=== PATIENT | male | born 1960 | race Two or more races ===

== ENCOUNTER 2021-03-25 09:57 | Emergency (ER) | payer SELFPAY ==
[~2021-03-25] VITALS: Ht 172.7 cm; Wt 76.2 kg
[2021-03-25 10:55] VITALS: BP 155/99
[2021-03-25] MEDS ORDERED: EPINEPHrine HCL 1 MG/1 ML AMP SC ONE (11:30)
[2021-03-25] MEDS ORDERED: diphenhdrAMINE HCL 50 MG/1 ML VL IM ONE (11:30)
== END 2021-03-25 12:16 | disposition home or self-care (01) ==
LOC: ER 09:57
DX: L23.9 Allergic contact dermatitis, unspecified cause (principal); E11.9 Type 2 diabetes mellitus without complications
CPT/HCPCS: 96372; 99284; J0171; J1200